=== PATIENT | female | born 1950 | race African-American/Black ===

== ENCOUNTER 2018-12-27 09:58 | Observation (INO) | payer OTHER ==
[2018-12-27] VITALS (14 sets, daily range): BP systolic 138–170; BP diastolic 46–81
[~2018-12-27] VITALS: Ht 152.4 cm; Wt 62.6 kg
[~2018-12-27 09:58] MED LIST: ASPIR 8181 M1 PO; B COMPLEX1 EACH PO; COREG25 MG PO; K-DUR10 MEQ PO; LASIX 40 MG TAB40 M2 PO; MICARDIS40 MG PO; THERA M PLUS T1 EAC2 PO
[2018-12-27 10:46] LABS: HEMATOCRIT 46.1 % (37.0-47.0); HEMOGLOBIN 15.4 gm/dL (12.0-15.0); MCH 29.5 pg (26.0-34.0); MCHC 33.4 g/dL (28.0-37.0); MCV 88.4 fL (80.0-100.0); MPV 9.2 fl. (7.2-11.1); RBC 5.21 mil/uL (4.20-5.00); RDW-CV 15.8 % (10.5-14.5); WBC 6.4 thou/uL (4.0-11.0)
[2018-12-27 10:54] LABS: APTT 28.5 Seconds (25.0-31.3); PROTIME 10.6 Seconds (9.20-11.50)
[2018-12-27 11:31] LABS: BUN 22 mg/dL (7-18); CALCIUM 9.8 mg/dL (8.5-10.1); CHLORIDE 108 mmol/L (98-107); CREATININE 1.4 mg/dL (0.6-1.3); GLUCOSE 105 mg/dL (70-99); HDL CHOLESTEROL 52 mg/dL (>40); POTASSIUM 3.8 mmol/L (3.5-5.1); SODIUM 143 mmol/L (136-145); TRIGLYCERIDE 72 mg/dL (<150); VLDL 14 mg/dL (<40)
[2018-12-27 11:41] LABS: ANION GAP 9 mmol/L (7-16); CHOLESTEROL 256 mg/dL (<200); CO2 26 mmol/L (21-32); LDL CHOLESTEROL 190 mg/dL (<100); SERUM ASSESSMENT Clear; TC:HDL 4.9 Ratio (Not establshd)
--- NOTE | 2018-12-27 16:00 | NUR ---
ADMIT TO ROOM 209 VIA CART FROM BOOK COVERER. ADMISSION ASSESSMENT COMPLETE, DEFER TO COMPUTER CHARTING. STUNNER AND SHACKLER PLACED TRACKING SR WITH DEPRESSED T-WAVES. DENIES CHEST PAIN, NAUSEA OR ANY DISCOMFORT AT THIS TIME. ALERT ORIENTED, PLEASANT AND CHEERFUL. CARDIAC TR BAND ON RIGHT WRIST, PRESSURE MANTAINED - CAP REFILL > 3 SECONDS. INSTRUCTED TO CALL NURSING PROMPTLY FOR ANY CHEST PAIN, SOA OR ANY CHANGE IN CONDITION OR CONCERNS. ORIENTED TO ROOM/CALL LIGHT AND PLAN OF CARE, VERBALIZED UNDERSTANDING. WILL MONITOR.
--- NOTE | 2018-12-27 16:30 | NUR ---
PATIENT REFUSING STOP SMOKING INFORMATION OR NICOTINE PATCH AT THIS TIME WHEN NURSE ATTEMPTED TO EDUCATE.
--- NOTE | 2018-12-27 16:37 | EKG ---
[place] [address] ELECTROCARDIOGRAM REPORT Name: EFREN MENON Room: [address] M.R.#: [id number] Admission: 12/27/18 Attend Phys: Charles Peck MD, F Discharge: Date of : 48 Report #: [id number] THIS REPORT FOR: //name// [facility] Test Date: 2018-12-27 Test Time: 10:28:10 Pat Name: EFREN MENON Department: Room: [facility] Gender: F Cutter Machine Tender: : 1950 Requested By: Charles Peck Order Number: [id number] Blake MD: Charles Peck Measurements Intervals [place] Rate: 64 P: 38 GA: 172 QRS: -36 QRSD: 160 T: 183 QT: 475 QTc: 490 Interpretive Statements Sinus rhythm pac Left bundle branch block No previous ECG available for comparison Electronically Signed On 12-27-2018 16:37:23 CDT by Charles Peck [email or web address] <ELECTRONICALLY SIGNED> By: Charles Peck MD, [facility] 12/27/18 1637 1028 1028 Charles Peck MD, FACC /EPI
--- NOTE | 2018-12-27 18:49 | CARD ---
[address] [address] CARDIAC CATH REPORT Name: EFREN MENON Room: [address] Estevan Kay#: [id number] Admission: 12/27/18 Attend Phys: Charles Peck MD, F Discharge: Date of : 48 Report #: [id number] THIS REPORT FOR: //name// APPROVED REPORT Study performed: 12/27/2018 10:46:13 Patient Details Patient Status: Observation Room #: The patient is a 68 year-old female Event Personnel Charles Peck Weatherseal Technician, Marie Muir RN RN, Herb FryI Scrub, Ld Berry COLLAR SHAPER OPERATOR Monitor Procedures Performed cath pci Indication Dyspnea, Chest pain Risk Factors Hypercholesterolemia, Hypertension Previous Procedures/Diagnoses Previous CHF Admission/Lab Medications/Medications given during procedure Glycoprotein IllbIlla Inhibitors, Heparin Unfract. Procedure Narrative The patient was brought electively to the Cardiac Catheterization Laboratory and was prepped and draped in a sterile manner. The right wrist was infiltrated with 1% Lidocaine subcutaneous anesthesia. A Slender Glidesheath sheath was inserted into the right radial artery. Coronary angiography was performed using coronary diagnostic catheters. The right coronary system was accessed and visualized with a JR4 5fr catheter. The left coronary system was accessed and visualized with a JL4 5frAL1 6fr catheter. The left ventricle was accessed and visualized with a PC: Angled Pig 5fr catheter. Left ventricular/Aortic Valve gradient assessed via catheter pullback. Left ventriculogram was performed in MORGAN projection. Closure device was deployed with a 6 Fr Vasc-Band Reg 24cm. The patient tolerated the procedure well and there [place] [address] CARDIAC CATH REPORT Name: EFREN MENON Room: [address] Rahul#: [id number] Admission: 12/27/18 Attend Phys: Charles Peck MD, F Discharge: Date of : 48 Report #: [id number] the procedure. There was no hematoma. Unable to cannulate LCA with JL4 catheter becuase of tortuous aorta. Intraoperative Conscious Sedation Sedation start time: 1318 Case end Time: 1405 Fentanyl 25 mcg Versed 2 mg Fluoro Time: 12.6 minutes Dose: DAP 11716 cGycm2 975 mGy Contrast Type and Amount: Visipaque 185 ml Coronary Angiography The patient's coronary anatomy is co- dominant. Diagnostic Cath Left Main 30% distal stenosis LAD 60% proximal stenosis Circumflex 0% stenosis Right Coronary 80% proximal and 60% mid stenosis Left Ventriculography The left ventricular ejection fraction is estimated to be 35-40%. There is 1+ mitral insufficiency. Global hypokinesis noted of the left ventricle. Hemodynamics The aortic pressure is 155/62 mmHg with a mean of 98 mmHg. The left ventricular pressure is 141/10 mmHg with a mean of mmHg. The left ventricular end diastolic pressure is 16 mmHg. There was no gradient across the aortic valve upon pullback. Pullback from the left ventricle to the aorta revealed no gradient across the aortic valve. PCI Technique Lesion Anticoagulation was achieved with Heparin. bolus of iv aggrastat given Percutaneous coronary intervention was performed on the proximal right coronary artery. The lesion stenosis prior to intervention was 80% with KARLA 3 flow. A 6F JR 4.0 Guide Catheter was used to engage the rca ostium. A IG: BMW 190cm Interventional Guidewire was used to cross the lesion. STENT DEPLOYMENT A drug-eluting stent Xience Kianna 2.5X12mm was inserted and inflated up to 16.00atm for 17seconds. Repeat angiography revealed the following post-stent deployment results: 0% [place] [address] CARDIAC CATH REPORT Name: EFREN MENON Room: [address] Rahul#: [id number] Admission: 12/27/18 Attend Phys: Charles Peck MD, F Discharge: Date of : 48 Report #: [id number] Inflation: 22.00atm for 17seconds. Additional Inflation: 22.00atm for 13seconds. Placing guidewire into distal rca resulted in kinking of the proximal rca, that resolved following removal of the wire and IC Nitro. Final angiography reveals 0 % stenosis with KARLA 3 flow. Conclusion 1. 60% proximal stenosis of the lad, and 80% stenosis of the proximal rca 2. LVEF 35-40% 3. successful placement of a drug eluting stent in the rca Recommendations Cardiac Rehabilitation Referral Aggressive Medical Therapy Medications Administered Clopidogrel <ELECTRONICALLY SIGNED> By: Charles Peck MD, [facility] 12/27/181848 48 48Dalynn Peck MD, FACC /INF
--- NOTE | 2018-12-27 19:07 | NUR ---
CRUISE STAFF MEMBER TRACKING SA TO SR AT TIMES. NO COMPLAINTS OF CHEST PAIN, DIZZINESS. PATIENT DOES REPORT HAVING RIGHT WRIST PAIN - DR SAWYER ON FLOOR EARLIER AND NOTIFIED INTO SEE PATIENT AND CHECK ON WRIST. GAUZE/TEGADERM DRESSING CDI TO RIGHT WRIST. RIGHT ARM ELEVATED ON PILLOW. IV FLUIDS INFUSING. CALL LIGHT WITHIN REACH. WILL MONITOR.
[2018-12-28] VITALS: BP 121/80
[2018-12-28 04:00] VITALS: BP 146/54
[2018-12-28 05:00] LABS: HEMATOCRIT 42.3 % (37.0-47.0); HEMOGLOBIN 14.1 gm/dL (12.0-15.0); MCH 29.6 pg (26.0-34.0); MCHC 33.4 g/dL (28.0-37.0); MCV 88.5 fL (80.0-100.0); MPV 9.2 fl. (7.2-11.1); RBC 4.78 mil/uL (4.20-5.00); RDW-CV 15.8 % (10.5-14.5); WBC 6.7 thou/uL (4.0-11.0)
[2018-12-28 05:15] LABS: CALCIUM 9.3 mg/dL (8.5-10.1); CREATININE 1.3 mg/dL (0.6-1.3); POTASSIUM 4.1 mmol/L (3.5-5.1); TROPONIN-I LEVEL 0.33 ng/mL (<0.06)
--- NOTE | 2018-12-28 05:49 | NUR ---
ASSUMED PT CARE @ 1930. PT GIVEN PAIN MEDICATION. ABLE TO GET SOME REST. DID REPORT SOME ANXIETY AND BAD DREAMS DURING THE NIGHT. PT STATED THIS AM "I USUALLY TAKE XANAX AT BEDTIME." RIGHT WRIST DRESSING DRY AND INTACT. BRUISING ON RIGHT WRIST/FOREARM AREA (SAME IN APPEARANCE SINCE LAST NIGHT). CALL LIGHT IN REACH. HOURLY ROUNDING FOR SAFETY.
[2018-12-28 08:01] VITALS: BP 145/52
[2018-12-28 08:09] VITALS: BP 160/63
--- NOTE | 2018-12-28 08:30 | NUR ---
REC'D REPORT FROM NOC RN, ASSUMED CARE OF PATIENT APPROX 0730. A&OX4, ABLE TO COMMUNICATE NEEDS TO STAFF. ASSESSMENT COMPLETE, VS OBTAINED. SURGERY CENTER ADMINISTRATOR IN PLACE, SR BBB, 90. O2 SATS 98% RA. PATIENT STATES, "I BELIEVE I'LL BE GOING HOME TODAY." CALL LIGHT IN REACH.
[2018-12-28 09:33] VITALS: BP 160/63
[2018-12-28] MEDS ORDERED: PLAVIX 75 MG TA75 M1 PO (12:12)
[2018-12-28] MEDS ORDERED: NITROGLYCERIN0.4 MG SUBLING (12:18)
[2018-12-28] MEDS ORDERED: ZETIA10 MG PO (12:20)
--- NOTE | 2018-12-28 13:30 | NUR ---
PATIENT WTIH COMPLETE DC ORDER. REVIEWED DC INSTRUCTIONS AND MED LIST WITH PATIENT. ANSWERED PATIENT'S QUESTIONS TO HER SATISFACTION. COMPENSATION COORDINATOR AND IV DISCONTINUED. MONITOR RETURNED TO POCKET. PATIENT IN POSSESSION OF ALL BELONGINGS. LEFT VIA WC AND NURSING STAFF. FRIEND TO TRANSPORT PATIENT TO PATIENT'S HOME VIA PERSONAL VEHICLE.
--- NOTE | 2018-12-30 13:23 | EKG ---
[place] [address] ELECTROCARDIOGRAM REPORT Name: EFREN MENON Room: [address] M.R.#: [id number] Admission: 12/27/18 Attend Phys: Charles Peck MD, F Discharge: 12/28/18 Date of : 48 Report #: [id number] THIS REPORT FOR: //name// [facility] Test Date: 2018-12-27 Test Time: 17:29:28 Pat Name: EFREN MENON Department: Room: [address] Gender: F Skiver Machine: : 1950 Requested By: Charles Peck Order Number: [id number] Blake GILLIAM: Milton Shen Measurements Intervals [place] Rate: 68 P: 67 WI: 205 QRS: -27 QRSD: 161 T: 191 QT: 469 QTc: 499 Interpretive Statements Sinus rhythm Atrial premature complex Left bundle branch block Compared to ECG 12/27/2018 10:28:10 No significant changes Electronically Signed On 12-30-2018 13:23:11 CDT by Milton Shen [email or web address] <ELECTRONICALLY SIGNED> By: Milton Shen MD, [facility] 12/30/18 1323 1729 1729 Milton Shen MD, [facility] /EPI
--- NOTE | 2018-12-30 13:23 | EKG ---
[place] [address] ELECTROCARDIOGRAM REPORT Name: EFREN MENON Room: [address] M.R.#: [id number] Admission: 12/27/18 Attend Phys: Charles Peck MD, F Discharge: 12/28/18 Date of : 48 Report #: [id number] THIS REPORT FOR: //name// [facility] Test Date: 2018-12-27 Test Time: 17:30:31 Pat Name: EFREN MENON Department: Room: [address] Gender: F Ion Implant Machine Operator: : 1950 Requested By: Charles Peck Order Number: [id number] Blake MD: Milton Shen Measurements Intervals [place] Rate: 72 P: 71 ID: 195 QRS: -24 QRSD: 161 T: 186 QT: 463 QTc: 507 Interpretive Statements Sinus rhythm Atrial premature complex Left bundle branch block Compared to ECG 12/27/2018 10:28:10 No significant changes Electronically Signed On 12-30-2018 13:23:18 CDT by Milton Shen [email or web address] <ELECTRONICALLY SIGNED> By: Milton Shen MD, [facility] 12/30/18 1323 1730 1730 Milton Shen MD, [facility] /EPI
== END 2018-12-28 13:43 | disposition home or self-care (01) ==
LOC: M.CL 09:58 → M.TBA-CV 16:04 → M.2W 16:04
PROVIDERS: ADMIT Internal Medicine Cardiovascular Disease
DX: R07.89 Other chest pain (principal); E78.00 Pure hypercholesterolemia, unspecified; I10 Essential (primary) hypertension